=== PATIENT | male | born 1980 | race Caucasian/White ===

== ENCOUNTER 2019-11-11 21:57 | Emergency (ER) | payer SELFPAY ==
[2019-11-11 21:58] VITALS: BP 126/77; PULSE 82; RESP 14; TEMP 36.6; O2SAT 97; BMI 30.8
--- NOTE | 2019-11-12 00:41 | ED.VISSUMM ---
- ER Visit Summary Date of Service: 11/12/19 Chief Complaint: Nausea, vomiting and diarrhea. History of Present Illness: The patient is a [address] for renal transplant as a child. He is no longer even on any antirejection medications. Said on Tuesday he started having intermittent nausea, vomiting diarrhea. Fever that resolved. Said his vomiting and nausea is resolved. No abdominal pain. He still having some intermittent diarrhea. No blood. No fever now. No abdominal pain. Physical Examination: Well-appearing middle-aged male vital signs stable afebrile. H EENT exam unremarkable. Well-hydrated. Neck nontender no lymphadenopathy. Lungs clear to auscultation bilaterally. Heart regular rhythm no murmur. Abdomen soft nontender. Extremities moves all 4. Calves nontender no edema no cords. Neurologically is awake alert with no focal motor deficits. Skin unremarkable no rashes. Test Results: None Emergency Department Course and Treatment: History and exam are consistent with a viral syndrome. They drink well water to her house but no one else is sick. Has had no recent travel or any recent antibiotics. Stay well-hydrated. Imodium for diarrhea. Follow-up as needed. Treatment Plan: Odium as needed. Plenty of fluids and rest. Disposition: Discharge Impression: Acute gastroenteritis History of renal transplant This note was generated with [employer] dictation software. It may contain incorrect words, spelling, and punctuation that were not noted in review of the chart prior to signing ED Disposition - Plan for ED Patient: Referrals: Care Physician,No Primary [Primary Care Provider] -
--- NOTE | 2019-11-12 00:43 | ED.DEP ---
ED Disposition - Plan for ED Patient: Disposition: Home or Assisted Living Instructions: VIRAL SYNDROME (Adult) Referrals: Gennaro German MD [STAFF PHYSICIAN] - 3-5 Days if not improving Additional Instructions: Imodium as needed for diarrhea Plenty of fluids and rest. You must stay hydrated and protect your transplanted kidney. Follow-up with your doctor if not improving. Return if feeling worse.
[2019-11-12] MEDS: Loperamide 2 MG Capsule 4 MG PO (00:57)
[2019-11-12 00:59] VITALS: BP 125/74; PULSE 81; RESP 16; O2SAT 98
--- NOTE | 2019-11-12 01:01 | ED.RN ---
THIS NURSE REVIEWED D/C INSTRUCTIONS WITH PT AND VISITOR. PT VERBALIZED UNDERSTANDING OF INSTRUCTIONS. PT DENIES FURTHER NEEDS OR QUESTIONS AT THIS TIME. PT AMBULATES FROM ROOM ON OWN WITHOUT ASSISTANCE FROM STAFF
== END 2019-11-12 01:02 | disposition home or self-care (01) ==
PROVIDERS: Emergency Provider Emergency Medicine
DX: K52.9 Noninfective gastroenteritis and colitis, unspecified (principal); Z94.0 Kidney transplant status
CPT/HCPCS: 99283

== ENCOUNTER 2021-10-06 13:32 | Outpatient (CLI) | payer BC, SELFPAY ==
[2021-10-06 15:14] LABS: Hematocrit 44.3 % (40-54); Hemoglobin 15.2 g/dL (13.0-16.5); Mean Corp Hgb Conc 34.3 g/dL (32-36); Mean Corpuscular Hgb 31.9 pg (27.0-32.0); Mean Corpuscular Volume 92.9 fL (80-94); Mean Platelet Vol. 9.7 fl (6.2-12.0); Platelet Count 368 K/mm3 (150-450); RBC Distribution Width CV 13.1 % (11.6-14.6); RBC Distribution Width SD 44.8 fl (35.1-43.9); Red Blood Count 4.77 M/mm3 (4.6-6.2); White Blood Count 5.7 K/mm3 (4.4-11.0)
[2021-10-06 15:55] LABS: ALB/GLOB Ratio 1.2 RATIO (0.9-2.4); AST(SGOT) 27 U/L (15-37); Alanine Aminotransfer ALT/SGPT 43 U/L (16-61); Albumin, Serum 4.2 g/dL (3.2-5.0); Alkaline Phosphatase 63 U/L (45-117); Anion Gap 6 (5-15); BUN 23 mg/dL (7-18); BUN/Creat Ratio 18.3 RATIO (10-20); Calcium,Total 9.1 mg/dL (8.5-10.1); Chloride 105 mmol/L (98-107); Creatinine, Serum 1.26 mg/dL (0.70-1.30); EST Glomerular Filtration Rate 67 mL/min (>60); Est Glom Filt Rate - Afr Amer 81 mL/min (>60); Globulin 3.6 g/dL (2.2-4.2); Glucose 93 mg/dL (74-106); Potassium 4.3 mmol/L (3.5-5.1); Protein, Total 7.8 g/dL (6.4-8.2); Sodium Level 138 mmol/L (136-145)
[2021-10-06 15:58] LABS: Protein, Urine (Random) 24.5 mg/dL (<11.9); Protein:Creat Ratio 208 mg/g CRE (0-200)
== END 2021-10-06 23:59 | disposition home or self-care (01) ==
LOC: BIMLAB 13:37
PROVIDERS: Referring Provider Internal Medicine Nephrology; Visit Provider Internal Medicine Nephrology
DX: Z94.0 Kidney transplant status (principal)
CPT/HCPCS: 36415; 80053; 82570; 84156; 85027